=== PATIENT | male | born 1980 | race Caucasian/White ===

== ENCOUNTER 2017-01-25 15:46 | Emergency (ER) | payer OTHER ==
[~2017-01-25] VITALS: Ht 177.8 cm; Wt 89.8 kg
[~2017-01-25 15:46] MED LIST: BENZONATATE200 MG PO; NOVAPLUS V0.09 MG/Ac INH; SUBOXONE 8 MG-21 FIL PO; ZITHROMAX Z-PA250 M1 PO
--- NOTE | 2017-01-25 16:46 | ED GENERAL ADULT ---
History of Present Illness General Chief Complaint: Abdominal Pain/Flank Pain Stated Complaint: BLDY STOOLS AND VOMITING BLOOD Source: patient Exam Limitations: no limitations Vital Signs & Intake/Output Vital Signs & Intake/Output Vital Signs Date Time Temp Pulse Resp B/P B/P Pulse O2 O2 Flow FiO2 Mean Ox Delivery Rate 01/25 1553 98.1 66 16 128/80 98 Room Air Allergies Coded Allergies: Penicillins (Severe, THROAT SWELLING 01/25/17) Reconcile Medications Albuterol Sulfate (Ventolin Hfa) 0.09 MG/Actuation ESTEBAN 1-2 PUFF INH Q6P PRN COUGH Azithromycin (Zithromax Z-Jaden) 250 MG CAP 1 DP PO AD bronchitis 2 the first day followed by 1 for days 2-5 Benzonatate 200 MG SGL 1 TAB PO TID COUGH BUPRENORPHINE HCL/NALOXONE HCL (Suboxone 8 MG-2 MG Sl Film) 1 EDILIA EDILIA 1 FILM PO TID ADDICTION (Reported) Ondansetron HCl (Zofran) 4 MG TABLET 1 TAB PO Q6-8P PRN NAUSEA Triage Note: PT STATES HIS HE THOUGHT HE HAS AN INFECTION IN HIS TOOTH STARTED TAKING ADVIL AND TYLENOL FOR PAIN OF THE TOOTH. PT STATES LAST NIGHT HE VOMITED AND NOTED THE VOMIT TO BE DARK VO. PT STATES HE IS NOW HAVING BURNING IN HIS STOMACH AND THINKS MAYBE HE CAUSED THE BLEEDING BY TAKING THE MOTRIN. Triage Nurses Notes Reviewed? yes Onset: Abrupt Duration: hour(s): Timing: recent history HPI: 01/25/17 36-year-old male presents to the emergency department with epigastric abdominal pain, status post vomiting and diarrhea. He says he was in his usual state of health until approximately 2 weeks ago when he was having severe tooth pain. He started taking clindamycin, ibuprofen, and Tylenol. He said that he subsequently developed epigastric abdominal pain. Today he had an episode of vomiting. The vomiting was rosas. He also had an episode of bright red blood per rectum 1 today. He has been stable over the past 2 hours. Currently in the emergency department he has no abdominal pain. Past History Travel History Traveled to [place] past 21 day No Medical History Any Pertinent Medical History? see below for history Neurological: NONE EENT: NONE Cardiovascular: NONE Respiratory: NONE Gastrointestinal: NONE Hepatic: NONE Renal: NONE Musculoskeletal: NONE Psychiatric: NONE Endocrine: NONE Blood Disorders: NONE Cancer(s): NONE Surgical History Surgical History: non-contributory Psychosocial History What is your primary language Japanese Tobacco Use: Current Daily Use Daily Tobacco Use Amount/Type: => 5 Cigarettes daily ETOH Use: occasional use Illicit Drug Use: denies illicit drug use Family History Hx Contributory? No Review of Systems Review of Systems Constitutional: Denies: fever. EENTM: Reports: tooth pain. Respiratory: Denies: short of breath. Cardiovascular: Denies: chest pain. GI: Reports: abdominal pain, diarrhea, bloody stool, vomiting. Genitourinary: Reports: no symptoms. Musculoskeletal: Reports: no symptoms. Skin: Reports: no symptoms. Neurological/Psychological: Reports: no symptoms. Hematologic/Endocrine: Reports: no symptoms. Immunologic/Allergic: Reports: no symptoms. Physical Exam Physical Exam General Appearance: alert, awake, anxious Head: atraumatic, normal appearance Eyes: Bilateral: normal appearance, PERRL, EOMI. Ears, Nose, Throat: normal pharynx, normal ENT inspection Neck: normal inspection, supple Respiratory: normal breath sounds, chest non-tender, no respiratory distress Cardiovascular: regular rate/rhythm Peripheral Pulses: 4+ radial (R), 4+ radial (L) Gastrointestinal: soft, non-tender Rectal: normal exam, normal rectal tone, heme negative stool Back: normal inspection, normal range of motion, vertebral tenderness Extremities: normal inspection, normal range of motion, no edema Neurologic/Psych: no motor/sensory deficits, awake, alert, oriented x 3 Skin: intact, normal color, warm/dry Core Measures ACS in differential dx? No CVA/TIA Diagnosis: No Severe Sepsis Present: No Septic Shock Present: No Progress Differential Diagnoses I considered the following diagnoses in my evaluation of the patient: [Ibuprofen -induced gastritis, peptic ulcer disease, C. difficile,] Plan of Care: Orders Procedure Date/time Status LIPASE 01/25 1731 Complete COMPREHENSIVE METABOLIC PANEL 01/25 1731 Complete CBC WITHOUT DIFFERENTIAL 01/25 173 Complete AMYLASE 01/25 173 Complete Laboratory Tests 01/25/17 1758: Anion Gap 11, Estimated GFR > 60, BUN/Creatinine Ratio 17.5, Glucose 98, Calcium 9.4, Total Bilirubin 0.8, AST 23, ALT 39, Alkaline Phosphatase 66, Total Protein 7.2, Albumin 4.4, Globulin 2.8, Albumin/Globulin Ratio 1.6, Amylase 36, Lipase 21 L, CBC w Diff NO MAN DIFF REQ, RBC 5.15, MCV 87.6, MCH 30.0, RDW 13.6, MPV 7.4, Gran % 71.8, Lymphocytes % 19.0 L, Monocytes % 5.7, Eosinophils % 3.0, Basophils % 0.5, Absolute Granulocytes 9.0 H, Absolute Lymphocytes 2.4, Absolute Monocytes 0.7 H, Absolute Eosinophils 0.4, Absolute Basophils 0.1, PUBS MCHC 34.2 Initial ED EKG: none Comments: 6 PM Patient has no abdominal pain and is guaiac positive. Abdominal exam is completely nontender at this time. Departure Departure Disposition: HOME OR SELF CARE Condition: Stable Clinical Impression Primary Impression: Abdominal pain Referrals: JOE BORJAS APRN (PCP/Family) Departure Forms: Customer Survey General Discharge Information Prescriptions: Current Visit Scripts Ondansetron HCl (Zofran) 1 TAB PO Q6-8P PRN NAUSEA #5 TAB Comments 01/25/17 No abdominal pain or vomiting in the ED. The patient will follow-up with GI. Outpatient C. difficile ordered. Critical Care Note Critical Care Note Critical Care Time: non-applicable
[2017-01-25] MEDS ORDERED: ZOFRAN4 M2 PO (17:58)
[2017-01-25 18:04] LABS: ABSOLUTE BASOPHIL COUNT 0.1 /CUMM (0.0-0.2); ABSOLUTE EOSINOPHIL COUNT 0.4 /CUMM (0.0-0.7); ABSOLUTE LYMPH COUNT 2.4 /CUMM (1.2-3.4); ABSOLUTE MONOCYTE COUNT 0.7 /CUMM (0.10-0.60); BASOPHIL % 0.5 % (0.0-2.0); GRANULOCYTE % 71.8 % (42.2-75.2); HEMATOCRIT 45.1 % (42-52); MEAN CORPUSCULAR HGB CONC 34.2 G/DL (33.0-37.0); MEAN CORPUSCULAR VOLUME 87.6 FL (80.0-94.0); MEAN PLATELET VOLUME 7.4 FL (7.4-10.4); PLATELET COUNT 320 /CUMM (130-400); RBC DISTRIBUTION WIDTH 13.6 % (11.5-14.5); RED BLOOD CELL CT 5.15 /CUMM (4.70-6.10); WHITE BLOOD CELL COUNT 12.5 /CUMM (4.8-10.8)
[2017-01-25 18:45] VITALS: BP 132/80
== END 2017-01-25 19:10 ==
LOC: ERH 15:46
PROVIDERS: Emergency Medicine
DX: R10.13 Epigastric pain (principal)